=== PATIENT | female | born 1965 | race African-American/Black ===

== ENCOUNTER 2022-09-22 14:45 | Inpatient (IN) | payer OTHER ==
[2022-09-22 15:51] VITALS: BMI 24.9
[2022-09-22] MEDS ORDERED: P-EPHED 60MG/TRIPROLIDI 2.5MG TABLET PO PRN (18:50)
[2022-09-22] MEDS ORDERED: LOPERAMIDE HCL 2 MG CAPSULE PO PRN (18:50)
[2022-09-22] MEDS ORDERED: ACETAMINOPHEN 325 MG TABLET (FP) PO PRN (18:50)
[2022-09-22] MEDS ORDERED: guaiFENesin 200 MG/10 ML 10 ML UNIT-DOSE CUPS PO PRN (18:50)
[2022-09-22] MEDS ORDERED: MAG HYDROX/AL HYDROX/SIMETH 30 ML UNIT-DOSE CUP PO PRN (18:50)
[2022-09-22] MEDS ORDERED: MAGNESIUM HYDROX 2400MG/30ML ORAL SUSPENSION 30 ML CUP PO PRN (18:50)
[2022-09-22] MEDS ORDERED: POLYETHYLENE GLYCOL (HEALTHYLAX) 3350 17 GM PACKET PO PRN (18:50)
[2022-09-22] MEDS ORDERED: BENZOCAINE/MENTHOL (CHLORASEPTIC ) LOZENGE MM PRN (18:50)
[2022-09-22] MEDS ORDERED: MELATONIN 5 MG TABLETS PO SCH (22:00)
[2022-09-23] MEDS ORDERED: TUBERCULIN PPD 5 TU/0.1ML VIAL ID ONE (00:50)
[2022-09-23] MEDS: LISINOPRIL 5 MG TABLET PO SCH ×2 (01:00→11:06)
[2022-09-23] MEDS: PREGABALIN 100 MG CAPSULE PO SCH ×2 (01:04→11:11)
[2022-09-23] MEDS: SULFAMETHOXAZOLE/TRIMETHOPRIM 800MG/160MG D.S. TABLET PO SCH ×2 (01:04→11:06)
[2022-09-23] MEDS: hydrOXYzine PAMOATE 25 MG CAPSULE (FP) PO PRN (01:16)
[2022-09-23] MEDS: MELATONIN 5 MG TABLETS PO SCH ×2 (01:21→23:33)
[2022-09-23 01:22] VITALS: RESP 18
[2022-09-23] MEDS: INSULIN (LEVEMIR) 100 UNITS/ML UNITS SQ SCH ×2 (01:22→23:35)
[2022-09-23] MEDS: ISOSORBIDE MONONITRATE 60 MG TAB.SR.24H (FP) PO SCH ×2 (01:22→11:07)
[2022-09-23] MEDS: ATORVASTATIN CA 10 MG TABLET (FP) PO SCH ×2 (01:23→23:34)
[2022-09-23] MEDS: THIAMINE HCL 100 MG TABLET (FP) PO SCH ×2 (01:23→23:32)
[2022-09-23] MEDS: RITONAVIR 100 MG TABLET PO SCH ×2 (01:23→11:07)
[2022-09-23] MEDS: DIVALPROEX SODIUM 500 MG TABLET E.C. PO SCH ×2 (11:06→23:35)
[2022-09-23] MEDS: PRENATAL VITAMINS W/ FOLIC ACID TABLET (FP) PO SCH (11:06)
[2022-09-23] MEDS: FUROSEMIDE 20 MG TABLET (FP) PO SCH (11:07)
[2022-09-23] MEDS: ASPIRIN COATED 81 MG TABLET.EC PO SCH (11:07)
[2022-09-23] MEDS: SERTRALINE HCL 50 MG TABLET (FP) PO SCH (11:07)
[2022-09-23] MEDS: NICOTINE 7 MG/24 HOURS TOPICAL PATCH TD SCH (11:07)
[2022-09-23] MEDS: DOLUTEGRAVIR SODIUM 50 MG TABLET (NON-FORMULARY) PO SCH (11:08)
[2022-09-23] MEDS: DARUNAVIR ETHANOLATE 800 MG TAB PO SCH (11:08)
[2022-09-23 11:26] LABS: HEMATOCRIT 46.7 % (32.4-45.2); HEMOGLOBIN 15.5 GM/dL (10.7-15.3); MCH 30.1 pg (25.7-33.7); MCHC 33.2 g/dl (32.0-36.0); MEAN CELL VOLUME 90.8 fl (80-96); MEAN PLT VOLUME 8.5 fl (7.5-11.1); PLATELET COUNT 247 10^3/uL (134-434); RBC 5.15 M/mm3 (3.60-5.2); RDW 15.5 % (11.6-15.6); WHITE BLOOD COUNT 5.3 K/mm3 (4.0-10.0)
[2022-09-23 11:33] LABS: ALBUMIN 3.4 g/dl (3.4-5.0); BLOOD UREA NITROGEN 23.5 mg/dL (7-18); CALCIUM 9.6 mg/dL (8.5-10.1)
[2022-09-23 11:37] LABS: CREATININE 1.1 mg/dL (0.55-1.3)
[2022-09-23 11:39] LABS: BILIRUBIN,TOTAL 0.2 mg/dL (0.2-1); TOT PROT 6.9 g/dl (6.4-8.2)
[2022-09-23 12:41] LABS: SYPHILIS W/ RPR CONF REACTIVE (NONREACTIVE)
[2022-09-23 21:25] LABS: EPI CELLS 36 /uL (0-25.1); HYALINE CASTS 1 /uL (0-3.1); URINE APPEARANCE CLOUDY; URINE BACTERIA 278 /uL (0-1359); URINE BILIRUBIN NEGATIVE (NEGATIVE); URINE COLOR YELLOW; URINE GLUCOSE (UA) NEGATIVE (NEGATIVE); URINE KETONE NEGATIVE (NEGATIVE); URINE LEUK ESTERASE NEGATIVE (NEGATIVE); URINE NITRITE NEGATIVE (NEGATIVE); URINE PROTEIN 2+ (NEGATIVE); URINE RBC 9 /uL (0-23.9); URINE UROBILINOGEN 0.2 mg/dL (0.2-1.0); URINE WBC 11 /uL (0-25.8)
[2022-09-23] MEDS ORDERED: QUEtiapine FUMARATE 100 MG TABLET (FP) PO SCH (22:00)
[2022-09-23] MEDS ORDERED: QUEtiapine FUMARATE 400 MG TABLET PO SCH (22:00)
[2022-09-24] MEDS: LISINOPRIL 5 MG TABLET PO SCH (10:34)
[2022-09-24] MEDS: DIVALPROEX SODIUM 500 MG TABLET E.C. PO SCH ×2 (10:34→21:06)
[2022-09-24] MEDS: PREGABALIN 100 MG CAPSULE PO SCH (10:34)
[2022-09-24] MEDS: ASPIRIN COATED 81 MG TABLET.EC PO SCH (10:34)
[2022-09-24] MEDS: SULFAMETHOXAZOLE/TRIMETHOPRIM 800MG/160MG D.S. TABLET PO SCH (10:34)
[2022-09-24] MEDS: PRENATAL VITAMINS W/ FOLIC ACID TABLET (FP) PO SCH (10:34)
[2022-09-24] MEDS: SERTRALINE HCL 50 MG TABLET (FP) PO SCH (10:34)
[2022-09-24] MEDS: ISOSORBIDE MONONITRATE 60 MG TAB.SR.24H (FP) PO SCH (10:35)
[2022-09-24] MEDS: NICOTINE 7 MG/24 HOURS TOPICAL PATCH TD SCH (10:35)
[2022-09-24] MEDS: DOLUTEGRAVIR SODIUM 50 MG TABLET (NON-FORMULARY) PO SCH (10:35)
[2022-09-24] MEDS: RITONAVIR 100 MG TABLET PO SCH (10:35)
[2022-09-24] MEDS: DARUNAVIR ETHANOLATE 800 MG TAB PO SCH (10:36)
[2022-09-24] MEDS: FUROSEMIDE 20 MG TABLET (FP) PO SCH (10:36)
[2022-09-24] MEDS: MELATONIN 5 MG TABLETS PO SCH (21:06)
[2022-09-24] MEDS: QUEtiapine FUMARATE 100 MG TABLET (FP) PO SCH (21:06)
[2022-09-24] MEDS: ATORVASTATIN CA 10 MG TABLET (FP) PO SCH (21:07)
[2022-09-24] MEDS: THIAMINE HCL 100 MG TABLET (FP) PO SCH (21:07)
[2022-09-24] MEDS: INSULIN (LEVEMIR) 100 UNITS/ML UNITS SQ SCH (21:07)
[2022-09-25] MEDS: IBUPROFEN 400 MG TABLET (FP) PO PRN (06:21)
[2022-09-25] MEDS: ASPIRIN COATED 81 MG TABLET.EC PO SCH (10:00)
[2022-09-25] MEDS: PRENATAL VITAMINS W/ FOLIC ACID TABLET (FP) PO SCH (10:00)
[2022-09-25] MEDS: DIVALPROEX SODIUM 500 MG TABLET E.C. PO SCH ×2 (10:00→21:26)
[2022-09-25] MEDS: RITONAVIR 100 MG TABLET PO SCH (10:00)
[2022-09-25] MEDS: ISOSORBIDE MONONITRATE 60 MG TAB.SR.24H (FP) PO SCH (10:00)
[2022-09-25] MEDS: FUROSEMIDE 20 MG TABLET (FP) PO SCH (10:00)
[2022-09-25] MEDS: DARUNAVIR ETHANOLATE 800 MG TAB PO SCH (10:00)
[2022-09-25] MEDS: DOLUTEGRAVIR SODIUM 50 MG TABLET (NON-FORMULARY) PO SCH (10:00)
[2022-09-25] MEDS: NICOTINE 7 MG/24 HOURS TOPICAL PATCH TD SCH (10:00)
[2022-09-25] MEDS: LISINOPRIL 5 MG TABLET PO SCH (10:00)
[2022-09-25] MEDS: PREGABALIN 100 MG CAPSULE PO SCH (10:00)
[2022-09-25] MEDS: SERTRALINE HCL 50 MG TABLET (FP) PO SCH (10:00)
[2022-09-25] MEDS: SULFAMETHOXAZOLE/TRIMETHOPRIM 800MG/160MG D.S. TABLET PO SCH (10:00)
[2022-09-25] MEDS: QUEtiapine FUMARATE 100 MG TABLET (FP) PO SCH (21:25)
[2022-09-25] MEDS: INSULIN (LEVEMIR) 100 UNITS/ML UNITS SQ SCH (21:26)
[2022-09-25] MEDS: MELATONIN 5 MG TABLETS PO SCH (21:26)
[2022-09-25] MEDS: THIAMINE HCL 100 MG TABLET (FP) PO SCH (21:26)
[2022-09-25] MEDS: ATORVASTATIN CA 10 MG TABLET (FP) PO SCH (21:26)
[2022-09-26] MEDS: SULFAMETHOXAZOLE/TRIMETHOPRIM 800MG/160MG D.S. TABLET PO SCH (09:42)
[2022-09-26] MEDS: ISOSORBIDE MONONITRATE 60 MG TAB.SR.24H (FP) PO SCH (09:42)
[2022-09-26] MEDS: FUROSEMIDE 20 MG TABLET (FP) PO SCH (09:42)
[2022-09-26] MEDS: SERTRALINE HCL 50 MG TABLET (FP) PO SCH (09:42)
[2022-09-26] MEDS: NICOTINE 7 MG/24 HOURS TOPICAL PATCH TD SCH (09:43)
[2022-09-26] MEDS: LISINOPRIL 5 MG TABLET PO SCH (09:43)
[2022-09-26] MEDS: PREGABALIN 100 MG CAPSULE PO SCH (09:43)
[2022-09-26] MEDS: DIVALPROEX SODIUM 500 MG TABLET E.C. PO SCH ×2 (09:43→21:05)
[2022-09-26] MEDS: ASPIRIN COATED 81 MG TABLET.EC PO SCH (09:43)
[2022-09-26] MEDS: RITONAVIR 100 MG TABLET PO SCH (09:45)
[2022-09-26] MEDS: DOLUTEGRAVIR SODIUM 50 MG TABLET (NON-FORMULARY) PO SCH (09:45)
[2022-09-26] MEDS: DARUNAVIR ETHANOLATE 800 MG TAB PO SCH (09:45)
[2022-09-26] MEDS: PRENATAL VITAMINS W/ FOLIC ACID TABLET (FP) PO SCH (09:47)
[2022-09-26] MEDS: ATORVASTATIN CA 10 MG TABLET (FP) PO SCH (21:05)
[2022-09-26] MEDS: THIAMINE HCL 100 MG TABLET (FP) PO SCH (21:05)
[2022-09-26] MEDS: QUEtiapine FUMARATE 100 MG TABLET (FP) PO SCH (21:06)
[2022-09-26] MEDS: MELATONIN 5 MG TABLETS PO SCH (21:06)
[2022-09-26] MEDS: INSULIN (LEVEMIR) 100 UNITS/ML UNITS SQ SCH (21:06)
[2022-09-27 08:49] VITALS: TEMP 97.8
[2022-09-27] MEDS: PREGABALIN 100 MG CAPSULE PO SCH (10:35)
[2022-09-27] MEDS: ASPIRIN COATED 81 MG TABLET.EC PO SCH (10:35)
[2022-09-27] MEDS: ISOSORBIDE MONONITRATE 60 MG TAB.SR.24H (FP) PO SCH (10:35)
[2022-09-27] MEDS: DIVALPROEX SODIUM 500 MG TABLET E.C. PO SCH ×2 (10:35→21:22)
[2022-09-27] MEDS: FUROSEMIDE 20 MG TABLET (FP) PO SCH (10:35)
[2022-09-27] MEDS: SERTRALINE HCL 50 MG TABLET (FP) PO SCH (10:35)
[2022-09-27] MEDS: SULFAMETHOXAZOLE/TRIMETHOPRIM 800MG/160MG D.S. TABLET PO SCH (10:35)
[2022-09-27] MEDS: RITONAVIR 100 MG TABLET PO SCH (10:36)
[2022-09-27] MEDS: DARUNAVIR ETHANOLATE 800 MG TAB PO SCH (10:36)
[2022-09-27] MEDS: PRENATAL VITAMINS W/ FOLIC ACID TABLET (FP) PO SCH (10:36)
[2022-09-27] MEDS: NICOTINE 7 MG/24 HOURS TOPICAL PATCH TD SCH (10:36)
[2022-09-27] MEDS: DOLUTEGRAVIR SODIUM 50 MG TABLET (NON-FORMULARY) PO SCH (10:37)
[2022-09-27] MEDS: LISINOPRIL 5 MG TABLET PO SCH (10:39)
[2022-09-27] MEDS: NICOTINE 10 MG CARTRIDGE (INHALER) IH PRN ×2 (10:39→21:31)
[2022-09-27] MEDS: ATORVASTATIN CA 10 MG TABLET (FP) PO SCH (21:22)
[2022-09-27] MEDS: QUEtiapine FUMARATE 100 MG TABLET (FP) PO SCH (21:22)
[2022-09-27] MEDS: THIAMINE HCL 100 MG TABLET (FP) PO SCH (21:22)
[2022-09-27] MEDS: hydrOXYzine PAMOATE 25 MG CAPSULE (FP) PO PRN (21:22)
[2022-09-27] MEDS: INSULIN (LEVEMIR) 100 UNITS/ML UNITS SQ SCH (21:26)
[2022-09-27] MEDS: MELATONIN 5 MG TABLETS PO SCH (21:26)
[2022-09-28] MEDS: NICOTINE 10 MG CARTRIDGE (INHALER) IH PRN (06:38)
[2022-09-28] MEDS: IBUPROFEN 400 MG TABLET (FP) PO PRN (06:38)
[2022-09-28 07:35] VITALS: BP 120/84; PULSE 71
[2022-09-28] MEDS: PREGABALIN 100 MG CAPSULE PO SCH (10:35)
[2022-09-28] MEDS: DARUNAVIR ETHANOLATE 800 MG TAB PO SCH (10:35)
[2022-09-28] MEDS: ASPIRIN COATED 81 MG TABLET.EC PO SCH (10:35)
[2022-09-28] MEDS: SERTRALINE HCL 50 MG TABLET (FP) PO SCH (10:35)
[2022-09-28] MEDS: ISOSORBIDE MONONITRATE 60 MG TAB.SR.24H (FP) PO SCH (10:35)
[2022-09-28] MEDS: DOLUTEGRAVIR SODIUM 50 MG TABLET (NON-FORMULARY) PO SCH (10:35)
[2022-09-28] MEDS: PRENATAL VITAMINS W/ FOLIC ACID TABLET (FP) PO SCH (10:35)
[2022-09-28] MEDS: SULFAMETHOXAZOLE/TRIMETHOPRIM 800MG/160MG D.S. TABLET PO SCH (10:35)
[2022-09-28] MEDS: RITONAVIR 100 MG TABLET PO SCH (10:35)
[2022-09-28] MEDS: LISINOPRIL 5 MG TABLET PO SCH (10:35)
[2022-09-28] MEDS: DIVALPROEX SODIUM 500 MG TABLET E.C. PO SCH (10:35)
[2022-09-28] MEDS: NICOTINE 7 MG/24 HOURS TOPICAL PATCH TD SCH (10:36)
[2022-09-28] MEDS: FUROSEMIDE 20 MG TABLET (FP) PO SCH (10:36)
== END 2022-09-28 12:25 | disposition home or self-care (01) | DRG 772 ==
LOC: YASAS 14:45 → Y5N 09-23 00:14
PROVIDERS: ADMIT Allergy & Immunology; ATTEND Psychiatry & Neurology Pain Medicine
PROC: HZ42ZZZ Group Counseling for Substance Abuse Treatment, Cognitive-Behavioral (ICD-10-PCS; principal; 2022-09-23)
DX: F14.20 Cocaine dependence, uncomplicated (principal); F17.210 Nicotine dependence, cigarettes, uncomplicated; F31.9 Bipolar disorder, unspecified; F43.10 Post-traumatic stress disorder, unspecified; Z21 Asymptomatic human immunodeficiency virus [HIV] infection status; G62.9 Polyneuropathy, unspecified; I10 Essential (primary) hypertension; E78.2 Mixed hyperlipidemia; E11.9 Type 2 diabetes mellitus without complications; Z79.4 Long term (current) use of insulin; M54.50 Low back pain, unspecified; G89.29 Other chronic pain; Z62.810 Personal history of physical and sexual abuse in childhood; Z91.410 Personal history of adult physical and sexual abuse; Z28.310 Unvaccinated for COVID-19; Z28.9 Immunization not carried out for unspecified reason
CPT/HCPCS: 36415; 80053; 80164; 81003; 82962; 85027; 86593; 86780; 86803; 93005; 93010; C9803-CS; U0003; U0005